=== PATIENT | female | born 1995 ===

== ENCOUNTER 2017-12-24 06:30 | Inpatient (IN) | payer OTHER ==
[2017-12-24] MEDS ORDERED: BUTORPHANOL TARTRATE 1 MG/ML VIAL IVPB ONE (10:07)
[2017-12-24] MEDS ORDERED: PROMETHAZINE HCL 25 MG/1 ML VIAL IVPUSH ONE (10:07)
--- NOTE | 2017-12-24 10:08 | HP ---
Past Medical History - Admission Chief Complaint: contractions History Source: Patient - Past Medical History Cardiovascular: No: HTN Pulmonary: No: Asthma, COPD Gastrointestinal: No: Ascites, GERD ...: 1 ...Para: 0 ...Term: 0 ...: 0 ...Spon : 0 ...Induced : 0 ...LMP: 03/07/17 ...EDC by [facility]: 01/05/18 Heme/Onc: No: Anemia Psych: No: Anxiety, Bipolar, Depression - Past Surgical History Past Surgical History: Yes: None Hx Myomectomy: No Hx Transabdominal Cerclage: No - Alcohol/Substance Use Hx Alcohol Use: No History of Substance Use: reports: None - Social History Usual Living Arrangement: Yes: With Spouse ADL: Independent History of Recent Travel: No Home Medications - Allergies Allergies/Adverse Reactions: Allergies Allergy/AdvReac Type Severity Reaction Status Date / Time [place] Allergy Verified 12/24/17 10:27 pineapple Allergy Verified 12/24/17 10:27 Review of Systems - Review of Systems Constitutional: reports: No Symptoms Eyes: reports: No Symptoms HENT: reports: No Symptoms Neck: reports: No Symptoms Cardiovascular: reports: No Symptoms Respiratory: reports: No Symptoms Gastrointestinal: reports: No Symptoms Genitourinary: reports: Other (possible leaking fluid, painful contractions). denies: Dysuria, Menses, Vaginal Bleeding Breasts: reports: No Symptoms Reported Musculoskeletal: reports: No Symptoms Integumentary: reports: No Symptoms Neurological: reports: No Symptoms Endocrine: reports: No Symptoms Hematology/Lymphatic: reports: No Symptoms Psychiatric: reports: No Symptoms Physical Exam - Maternity Vital Signs: Vital Signs Temperature 98.6 F 12/24/17 06:45 Pulse Rate 69 12/24/17 06:45 Respiratory Rate 18 12/24/17 06:45 Blood Pressure 134/76 12/24/17 06:45 O2 Sat by Pulse Oximetry (%) Constitutional: Yes: Well Nourished, Mild Distress Eyes: Yes: EOM Intact HENT: Yes: WNL Neck: Yes: WNL Breast(s): Yes: WNL - Abdominal Exam/OB Number of Fetuses: Single Presentation: Vertex Contractions: Yes Regularity: Regular Intensity: Mod/Strong Category: I Accelerations: Uniform Decelerations: None - Vaginal Exam/OB Vaginal Bleediing: No Dilatation (cm): 6 Effacement (%): 100 Amniotic Membrane Status: Intact Presentation: Vertex/Position Station: -1 - Physical Exam Psychiatric: Yes: Alert, Oriented Hemorrhage Risk Assessment - Risk Factors Medium Risk Factors: Yes: None High Risk Factors: Yes: None Risk Score: 1 Risk Level: Medium Risk Problem List - Problems (1) Active labor at term Code(s): [id number] - Assessment/Plan SIUP at 38 weeks, active labor FHTS cat 1 expectant management analgesia prn anticipate
[2017-12-24] MEDS ORDERED: OXYTOCIN 20 UNITS in 0.9% NS 20 UNIT/1,000 ML INFUS.BAG IV ONE ×2 (10:23→15:00)
[2017-12-24] MEDS ORDERED: LIDOCAINE HCL 1% PRESERVATIVE FREE - 30ML VIAL ONE (10:25)
[2017-12-24] MEDS: D5W-LR W/ 20 UNITS OXYTOCIN 20 UNIT/1,000 ML INFUS.BAG IV SCH (10:30)
[2017-12-24] MEDS ORDERED: BENZOCAINE 20% 57 GM BOTTLE TP PRN (10:50)
[2017-12-24] MEDS ORDERED: WITCH HAZEL 50% (TUCKS) 40 PAD/JAR PAD TP PRN (10:50)
[2017-12-24] MEDS ORDERED: IBUPROFEN 600 MG TABLET (FP) PO PRN (10:50)
[2017-12-24] MEDS ORDERED: METHYLERGONOVINE MALEATE 0.2 MG/1 ML AMP IM PRN (10:50)
[2017-12-24] MEDS ORDERED: BENZOCAINE 28 GM HEMORRHOIDAL OINTMENT TP PRN (10:50)
[2017-12-24] MEDS ORDERED: ACETAMINOPHEN 325 MG TABLET (FP) PO PRN (10:50)
[2017-12-24] MEDS ORDERED: BISACODYL 10 MG SUPP.RECT RC PRN (10:50)
--- NOTE | 2017-12-24 10:50 | PN ---
Delivery - Delivery Vaginal Delivery: No Problems Type of Anesthesia: Local Episiotomy/Laceration: 1st degree EBL (cc): 300 Delivery, Single - Stages of Labor Date of Delivery: 12/24/17 Time of Delivery: Date Placenta Delivered: 12/24/17 Time Placenta Delivered: Placenta: Yes: Spontaneous - Condition of Feller Operator/Dairy Technician Present: No Infant Gender: Male Position: Left, OA - 1 Minute Total Score: 9 5 Minutes Total Score: 9 Remarks - Remarks Remarks: Uncomplicated from TEVIN position anterior shoulder (right) delivered with ease along with remainder of cord clamped and cut 1st degree laceration with b/l labial extensions repaired with 2-0 biosyn suture after injecting with 10cc of 1% lidocaine sponge and needle count correct after delivery mom stable baby to well baby nrusery
[2017-12-24] MEDS ORDERED: OXYTOCIN 20 UNITS in 0.9% NS 1,000 ML IV SCH (11:00)
[2017-12-24 11:02] LABS: BASO % 0.1 % (0-2.0); EOS % 0.1 % (0-4.5); HEMATOCRIT 36.4 % (32.4-45.2); HEMOGLOBIN 11.9 GM/dL (10.7-15.3); LYMPH % 5.2 % (8-40); MCH 26.3 pg (25.7-33.7); MCHC 32.6 g/dl (32.0-36.0); MEAN CELL VOLUME 80.7 fl (80-96); MEAN PLT VOLUME 7.7 fl (7.5-11.1); MONO % 4.2 % (3.8-10.2); NEUT % 90.4 % (42.8-82.8); PLATELET COUNT 366 K/MM3 (134-434); RBC 4.51 M/mm3 (3.60-5.2); RDW 14.2 % (11.6-15.6); WHITE BLOOD COUNT 16.1 K/mm3 (4.0-10.0)
[2017-12-24 11:15] LABS: INR 0.95 (0.82-1.09); PROTHROMBIN TIME (PATIENT) 10.7 SEC (9.7-13.0)
[2017-12-24 11:17] LABS: ACTIVATED PTT 26.6 SECONDS (25.2-36.5)
[2017-12-24 11:24] VITALS: BMI 29.1
[2017-12-24 11:32] LABS: ANION GAP 10 (8-16); BLOOD UREA NITROGEN 8 mg/dL (7-18); CALCIUM 8.8 mg/dL (8.5-10.1); CHLORIDE 103 mmol/L (98-107); CO2 23 mmol/L (21-32); CREATININE 0.5 mg/dL (0.55-1.02); GLUCOSE,RANDOM 87 mg/dL (74-106); POTASSIUM 3.9 mmol/L (3.5-5.1); SODIUM 136 mmol/L (136-145)
[2017-12-24] MEDS ORDERED: TUBERCULIN PPD 5 TU/0.1ML SYRINGE (IN PATIENT USE ONLY) ID ONE (14:00)
[2017-12-24 16:27] LABS: COCAINE, UR NEGATIVE ng/ml (CUTOFF=300); METHADONE, UR NEGATIVE ng/ml (CUTOFF=300); OPIATES, URI NEGATIVE ng/ml (CUTOFF=300); PHENCYCLIDINE,URINE NEGATIVE ng/ml (CUTOFF=25); URINE AMPHETAMINES NEGATIVE ng/ml (CUTOFF=500); URINE BARBITURATES NEGATIVE ng/ml (CUTOFF=200); URINE BENZODIAZEPINES NEGATIVE ng/ml (CUTOFF=200)
[2017-12-24] MEDS ORDERED: ELECTROLYTE-148 SOLN 1,000 ML IV SCH (16:30)
--- NOTE | 2017-12-25 07:12 | PN ---
Post Progress Note - Subjective Subjective: Pt seen/evaluated and doing well. Pain controlled, VB minimal. Tolerating diet , ambulating, voiding. Type of Delivery: Vital Signs: Vital Signs Temperature 98.2 F 12/25/17 05:40 Pulse Rate 82 12/25/17 05:40 Respiratory Rate 20 12/25/17 05:40 Blood Pressure 133/73 12/25/17 05:40 O2 Sat by Pulse Oximetry (%) 98 12/24/17 11:45 Breast Exam: Yes: Soft Uterus: Yes: Fundus Firm Abdomen/GI: Yes: Abdomen soft Lochia: Yes: Rubra Lochia, amount: Small Extremities: Yes: Calves non-tender. No: Edema Perineum: Yes: Laceration (repaired) Activity: Ambulating - Labs Labs: CBC WBC 16.1 K/mm3 (4.0-10.0) H 12/24/17 10:50 RBC 4.51 M/mm3 (3.60-5.2) 12/24/17 10:50 Hgb 11.9 GM/dL (10.7-15.3) 12/24/17 10:50 Hct 36.4 % (32.4-45.2) 12/24/17 10:50 MCV 80.7 fl (80-96) 12/24/17 10:50 MCH 26.3 pg (25.7-33.7) 12/24/17 10:50 MCHC 32.6 g/dl (32.0-36.0) 12/24/17 10:50 RDW 14.2 % (11.6-15.6) 12/24/17 10:50 Plt Count 366 K/MM3 (134-434) 12/24/17 10:50 MPV 7.7 fl (7.5-11.1) 12/24/17 10:50 Absolute Neuts (auto) 14.6 # 12/24/17 10:50 Neutrophils % 90.4 % (42.8-82.8) H 12/24/17 10:50 Lymphocytes % 5.2 % (8-40) L 12/24/17 10:50 Monocytes % 4.2 % (3.8-10.2) 12/24/17 10:50 Eosinophils % 0.1 % (0-4.5) 12/24/17 10:50 Basophils % 0.1 % (0-2.0) 12/24/17 10:50 Nucleated RBC % 0 % (0-0) 12/24/17 10:50 Problem List - Problems (1) Active labor at term Code(s): FKH2832 - (2) Vaginal delivery Code(s): O80 - ENCOUNTER FOR FULL-TERM UNCOMPLICATED DELIVERY Assessment/Plan 22 y/o PPD#1 s/p normal AFVSS CBC pending regular diet PO pain meds routine post care
[2017-12-25 09:36] LABS: BASO % 0.1 % (0-2.0); EOS % 0.4 % (0-4.5); HEMATOCRIT 31.3 % (32.4-45.2); HEMOGLOBIN 10.3 GM/dL (10.7-15.3); LYMPH % 10.3 % (8-40); MCH 26.6 pg (25.7-33.7); MEAN CELL VOLUME 80.6 fl (80-96); MEAN PLT VOLUME 7.9 fl (7.5-11.1); MONO % 7.6 % (3.8-10.2); NEUT % 81.6 % (42.8-82.8); PLATELET COUNT 327 K/MM3 (134-434); RBC 3.88 M/mm3 (3.60-5.2); WHITE BLOOD COUNT 16.2 K/mm3 (4.0-10.0)
[2017-12-25] MEDS: PRENATAL VITAMINS W/ FOLIC ACID TABLET (FP) PO SCH (10:10)
[2017-12-25] MEDS ORDERED: DIPHTH,PERTUSS(ACELL),TET 0.5 ML DISP.SYRIN IM ONE ×2 (14:00→18:30)
[2017-12-25] MEDS: D5W-LR W/ 20 UNITS OXYTOCIN 20 UNIT/1,000 ML INFUS.BAG IV SCH (19:23)
[2017-12-25] MEDS ORDERED: SENNOSIDES/DOCUSATE COMBO (SENNA PLUS) TABLET (UD) PO PRN (22:00)
[2017-12-26 08:59] VITALS: BP 134/80; PULSE 98; TEMP 98.5
[2017-12-26] MEDS: PRENATAL VITAMINS W/ FOLIC ACID TABLET (FP) PO SCH (09:11)
== END 2017-12-26 14:20 | disposition home or self-care (01) | DRG 775 ==
LOC: JDEL 06:30 → JLDR 09:50 → J3W 13:00
PROVIDERS: ADMIT Obstetrics & Gynecology; ATTEND Obstetrics & Gynecology
PROC: 0HQ9XZZ Repair Perineum Skin, External Approach (ICD-10-PCS; principal; 2017-12-24)
PROC: 10E0XZZ Delivery of Products of Conception, External Approach (ICD-10-PCS; 2017-12-24)
DX: O70.0 First degree perineal laceration during delivery (principal); Z3A.38 38 weeks gestation of pregnancy; Z37.0 Single live birth
CPT/HCPCS: 36415; 59025; 59409; 80048; 80307; 85025; 85610; 85730; 86593; 86850; 86900; 86901; 90715